=== PATIENT | female | born 1990 | race Caucasian/White ===

== ENCOUNTER 2016-09-17 08:00 | Inpatient (IN) ==
[2016-09-17] MEDS ORDERED: Naloxone 0.4 MG/ML INJ IVP PRN (09:27)
[2016-09-17] MEDS ORDERED: miSOPROStol 25 MCG TABLET VG PRN (09:27)
[2016-09-17] MEDS ORDERED: Ondansetron 4 MG/2 ML VIAL IVP PRN (09:27)
[2016-09-17] MEDS ORDERED: Famotidine 20 MG/2 ML VIAL IVP PRN (09:27)
[2016-09-17] MEDS ORDERED: Ringers Solution, Lactated 1,000 ML IVC SCH (09:30)
[2016-09-17 09:38] LABS: Basophils # 0.1 K/mcL (0.0-0.2); Basophils % 0.4 %; Eosinophils # 0.3 K/mcL (0.0-0.6); Eosinophils % 1.6 %; Hematocrit 35.7 % (35.3-44.9); Hemoglobin 11.7 g/dL (11.5-15.4); Lymphocytes # 3.1 K/mcL (0.6-4.6); Lymphocytes % 19.5 %; Mean Corpuscular HGB Conc 32.8 g/dL (31.6-35.5); Mean Corpuscular Hemoglobin 29.7 pg (28.0-33.3); Mean Corpuscular Volume 90.6 fL (83.0-100.0); Mean Platelet Volume 11.8 fL (9.4-12.4); Monocytes # 1.2 K/mcL (0.0-1.3); Monocytes % 7.5 %; Neutrophils # 11.1 K/mcL (1.6-8.9); Platelet Count 262 K/mcL (140-400); Red Blood Count 3.94 M/mcL (3.82-4.97); Red Cell Distribution Width 12.8 % (11.5-14.5)
--- NOTE | 2016-09-17 10:14 | OB/GYN History & Physical ---
Date of Encounter: 09/17/16 Time of Encounter: 10:11 Assessment and Plan (1) 40 weeks gestation of Current visit: Yes Status: Acute admitted for IOL (2) Elective induction of labor planned Current visit: Yes Status: Acute Dodge catheter placed. Due to contraction pattern will start pitocin if needed. History of Present Illness Chief complaint: Patient here for Scheduled IOL at 40w2d HPI: Ms. Lagunas is a 25 year old female at 40w2d presents for scheduled IOL. Patient reports feeling cramping or possible contractions all morning. Patient denies LOF or VB. Discussed POC with patient. Patient denies any questions or concerns. Blood type: O negative, Rubella: Immune, Hep B: Nonreactive, GBS: Negative. Past Med Surg Social Fam HX - Past Medical History Source: patient Medical history: no medical history Psychiatric history: no psych history - Past Surgical History Surgical History: no surgical history - Social History Smoking Status: Current every day smoker Smokeless Tobacco Status: No Alcohol use: none Current living situation: Home - Independent Activity Level: Independent ambulation Recent Out of Country Travel Within the Last 8 Weeks: No Exposure or Possible Exposure to Illness During Travel: No Obstetrical History - Pregnancies : 2 Para: 1 Term: 1 : 0 Ab's: 0 Livin Medications and Allergies No Known Home Drugs 09/17/16 [History] Allergies No Known Allergies Allergy (Verified 03/14/15 20:32) Review of System OB - Constitutional Constitutional ROS IM: no chills, no fever(s), no headache(s), no night sweats - Cardiovascular Cardiovascular: no chest pain, no edema, no lightheadedness, no palpitations, no syncope - Respiratory Respiratory: no cough, no dyspnea - Gastrointestinal Gastrointestinal: no constipation, no cramping, no diarrhea, no heartburn, no nausea, no vomiting - Genitourinary Genitourinary: no abnormal vaginal bleeding, no dysuria, no flank pain, no urinary frequency, no urinary incontinence, no urinary urgency, no vaginal discharge, no vaginal odor Exam - Constitutional Constitutional: well developed, well nourished, no acute distress, average body habitus - HEENT HEENT: Normocephaly, Mucus Membranes Moist - Neck Neck exam: full ROM, supple - Lungs Respiratory exam: CTAB - Cardiovascular Cardiovascular exam: RRR, +S1, +S2 - Abdomen Abdomen: Present: bowel sounds normal, gravid, non tender - Extremities Extremities exam: full ROM, normal capillary refill, normal inspection Deep Tendon Reflex Grade: 2+ Normal - Cervix Dilation: 2 Effacement: 80 Station: -2 - Uterus Uterus exam: Present: normal size, normal contour - Anus/Rectum Anus/Rectum: Present: normal perianal skin - Comments Comments: FHR 135 bpm moderate variability +15x15 accels no decels noted. contractions every 2-3 minutes. Cat. 1 tracing. Results Result Diagrams: 09/17/16 09:30 Abnormal lab results WBC 15.9 K/mcL (4.3-11.1) H 09/17/16 09:30 Neutrophils # 11.1 K/mcL (1.6-8.9) H 09/17/16 09:30 All other labs normal.
[2016-09-17] MEDS ORDERED: Oxytocin 20 units/ LR 1000 mL 20 UNIT/1,000 ML BAG IVC SCH ×2 (10:15→22:15)
--- NOTE | 2016-09-17 11:39 | Anesthesia Evaluation PreOp ---
Date of Encounter: 09/17/16 Time of Encounter: 11:36 - Past History Planned Operation: vaginal del, , Induction Cardiac History: Denies any Significant Hx Pulmonary History: Denies Any Significant HX SUMMER CLERK History: Denies Any Significant HX Other Medical History: Denies Any Significant HX Anesthesia History: No Prior Anesthetic Complications, Past Anesthesia : Yes Alcohol Use: none Drug use: none Medications and Allergies No Known Home Drugs 09/17/16 [History] Allergies No Known Allergies Allergy (Verified 03/14/15 20:32) Anesthesia Results - Labs 09/17/16 09:30 Anesthesia Exam - HEENT Pupil (Motor): Pupils equal Mallampati: II Teeth: Normal Oral Opening: Greater than 3 - SUMMER CLERK LOC: Oriented SUMMER CLERK Motor: Normal RUE, Normal LUE, Normal RLE, Normal LLE, Normal Face SUMMER CLERK Sensory: Normal: RUE, LUE, RLE, LLE, Face - Cardiac Rhythm: Regular Murmur: None - Pulmonary Breath Sounds: bilateral Clear Respiratory Effort: Symmetrical Anesthesia Assess/Plan ASA Score: 2 Modified Elaina Scale for Level of Consciousness: Cooperative, oriented, and tranquil Anesthetic Plan: General, Regional Monitoring Plan: Standard Monitors Recovery Plan: PACU
[2016-09-17] MEDS ORDERED: Epidural Premix (fent/bupiv) 110 ML EP ONE ×2 (11:46→20:13)
--- NOTE | 2016-09-17 11:50 | OB Labor Progress Note ---
Date of Encounter: 09/17/16 Time of Encounter: 11:48 Labor Progress Note - Subjective Subjective: Patient on birthing ball. Pitocin on 4 milliunits. Discussed POC with patient. Patient denies any questions or concerns. - Cervix Cervix: 5/80/-2 - Heart Tones Heart Tones: 135 bpm moderate variability +15x15 accels no decels noted. - Amaya Amaya: 2-3 min apart - Interventions Interventions: SVE, AROM large amount of clear fluid. IUPC placed without difficulty. Patient tolerated well. - Plan Plan: Continue labor management.
--- NOTE | 2016-09-17 13:09 | OB Labor Progress Note ---
Date of Encounter: 09/17/16 Time of Encounter: 13:05 Labor Progress Note - Subjective Subjective: Patient states contractions getting more uncomfortable but still tolerating them. Still not ready for an epidural - Cervix Cervix: 5/80/-2 posterior - Heart Tones Heart Tones: heart tones 140s reactive - [place]: Contractions every 2 minutes irregular - Plan Plan: Anticipate normal spontaneous vaginal delivery
--- NOTE | 2016-09-17 15:33 | Anesthesia Procedures ---
Date of Encounter: 09/17/16 Time of Encounter: 14:53 Procedures: Anesthesia - Epidural/Spinal Patient ID/Chart reviewed: Yes Patient examined: Yes OB Eval: Gestational age: term OB Eval: : 2 OB Eval: Hx Para: 1 OB Eval: Contractions: Non-stressed pattern Consent Obtained: Yes Supplemental Oxygen: None/Room Air Site Prep: Aseptic Technique, Sterile prep and drape, 0.5% Chlorhexidine/Alcohol Patient position: upright Local Anesthetic: Lidocaine 1% Amount of Local Anesthetic used: 2 Touhy Needle Gauge: 18 Touhy Needle Depth (cm): 6 Catheter Depth at Skin (cm): 10 Test Dose (1.5% Lido + Epi): Volume given (mls): 3 Test Dose Result: Negative Loading Dose: Other: 10ml from solution Loading Dose Administered: Thru Catheter Infusion Med: 0.125% Bupivacaine w/ 2 mcg/ml Fentanyl Infusion Rate (mls/hr): [address]: Tegaderm, Tape Interspace Used: L4-L5 Loss of Resistance (MARIANA): Yes (saline) Blood: No CSF: No Paresthesia: No Procedure: vss though out, FHR stable per RN's
--- NOTE | 2016-09-17 17:09 | OB Labor Progress Note ---
Date of Encounter: 09/17/16 Time of Encounter: 17:00 Labor Progress Note - Subjective Subjective: Patient comfortable after epidural - Cervix Cervix: 5-6/80/-2 - Heart Tones Heart Tones: heart tones 140s reactive - [place]: Contractions every 3-4 minutes irregular chosen at 16 mU/m - Plan Plan: Continued increasing Pitocin plan is anticipated vaginal delivery
[2016-09-17] MEDS ORDERED: ROPIVACAINE HCL/PF 0.5% 30 ML VIAL ONE (20:10)
[2016-09-17] MEDS ORDERED: Lidocaine 1% 20 ML MDV ONE (20:13)
[2016-09-17] MEDS ORDERED: Acetaminophen 325 MG TABLET PO PRN (22:02)
[2016-09-17] MEDS ORDERED: Measles/Mumps/Rubella Vacc 0.5 ML VIAL SQ PRN (22:02)
[2016-09-17] MEDS ORDERED: *HR* HYDROcodone/Acet 5/325 mg TABLET PO PRN (22:02)
[2016-09-17] MEDS ORDERED: Rho Immune Globulin 1,500 UNIT SYRINGE IM PRN (22:02)
--- NOTE | 2016-09-17 22:07 | OB/GYN Procedure Note ---
Delivery - Delivery Date: 09/17/16 Provider: Herrera Francois Intrapartum events: none Delivery induction: oxytocin, figueroa Delivery augmentation: rupture of membranes Delivery monitor: external FHT, external uterine, internal uterine Anesthesia: epidural Estimated Blood Loss: 200 - Infant (s) Infant A Infant Delivery Date: 09/17/16 Infant Delivery Time: 21:42 Presentation: vertex Position: HARVINDER Route of delivery: Gender: Male Viability: Viable Pounds: 8 Ounces: 7 Weight Gram: 3.825 kg at 1 minute: 8 at 5 mins: 9 Shoulder Dystocia: not encountered Specimens collected: cord blood Placenta: spontaneous Cord: 3 umbilical vessels - Repair Episiotomy: none Laceration Description: Periurethral (right), Labial (bilaterally) - Complications Delivery complications: none Delivery comments: Patient is a 25-year-old 2 para 1 at 40-2/7 weeks who is brought in for ductions labor secondary to term . Patient received a only catheter and Pitocin since she was already jason. After Figueroa catheter had come out she was 4-5 cm she was artificially ruptured large amounts of clear fluid. Patient received an epidural when she was partially 5-6 and venous. Patient's Pitocin was increased contractions became irregular we cut the Pitocin and half in and started back up again this seemed to get back into a more regular patent. Patient became complete she pushed for approximately 20 minutes delivering a viable male in right occiput anterior presentation at 2142. There was no nuchal cord, no meconium, was bulb suctioned on the abdomen. Apgars were 8 at 1 minute, 9 at 5 minutes, infant weight was 8 lbs. 7 oz. Placenta was then delivered spontaneously with a three-vessel cord, pipe stem repairer Dr. Francois, anesthesia epidural, estimated blood loss 200 mL. Patient had a right periurethral laceration and bilateral labial lacerations repaired with 4-0 Vicryl in usual fashion. Cervix and vagina was visualized intact. All needles AND sponge counts were correct 3 she did tolerate this delivery. She will be observed 2 hours before being taken floor. - Disposition Mom disposition: stable in LDR disposition: stable in LDR
[2016-09-17] MEDS: Ibuprofen 600 MG TABLET PO PRN (22:59)
[2016-09-18 06:44] LABS: Basophils # 0.1 K/mcL (0.0-0.2); Basophils % 0.2 %; Eosinophils # 0.1 K/mcL (0.0-0.6); Eosinophils % 0.5 %; Hematocrit 33.4 % (35.3-44.9); Hemoglobin 10.9 g/dL (11.5-15.4); Lymphocytes # 2.8 K/mcL (0.6-4.6); Lymphocytes % 11.8 %; Mean Corpuscular HGB Conc 32.6 g/dL (31.6-35.5); Mean Corpuscular Hemoglobin 29.9 pg (28.0-33.3); Mean Corpuscular Volume 91.5 fL (83.0-100.0); Mean Platelet Volume 12.3 fL (9.4-12.4); Monocytes % 7.7 %; Neutrophils # 18.8 K/mcL (1.6-8.9); Platelet Count 256 K/mcL (140-400); Red Blood Count 3.65 M/mcL (3.82-4.97); Red Cell Distribution Width 12.8 % (11.5-14.5); Segmented Neutrophils % 78.8 %
[2016-09-18 06:45] LABS: Monocytes # 1.8 K/mcL (0.0-1.3)
[2016-09-18 08:19] VITALS: BP 107/66
[2016-09-18] MEDS: Ibuprofen 600 MG TABLET PO PRN (08:39)
[2016-09-18] MEDS ORDERED: Lanolin 7 G OINT...G. TP PRN (08:41)
[2016-09-18] MEDS ORDERED: Prenatal Vit/FA 1 EACH TABLET PO SCH (09:00)
--- NOTE | 2016-09-18 09:57 | Discharge Summary ---
Date of Encounter: 09/18/16 Time of Encounter: 09:50 - Discharge Diagnosis (1) Status post vaginal delivery Priority: Primary Status: Acute Comments: Pt is doing well status post vaginal delivery Pt feels comfortable and denies any significant pain. Pt denies any numbness, back pain States lochia light and no clots Dodge removed and pt able to void and pass gas without difficulty Tolerant liquid and advanced to regular diet well May be discharged later tonight following Rhogam eval and administration, 24-48 hours post vaginal delivery if no further complaints, vaginal bleeding or signs of infection Monitor vital signs closely until discharge Counseled pt on signs of infection Educated pt on signs of depression Pt desires to breastfeed (2) Breast feeding status of mother Priority: Secondary Status: Acute Comments: Patient is Difficulty with latch occasionally - Discharge Medications Prescriptions: Ibuprofen [Motrin] 600 mg PO Q6HR PRN #60 tablet PRN Reason: Cramping Breast Pump [BREAST PUMP] 1 each .ROUTE AD #1 each Docusate [Colace] 100 mg PO BID #30 capsule Ferrous Sulfate 325 mg PO DAILY #60 tablet Home Medications: Benzocaine/Menthol [place] [Dermoplast [place]] 1 appl TP QID PRN #0 aerosol [Rx] Breast Pump [BREAST PUMP] 1 each .ROUTE AD #1 each 09/18/16 [Rx] Docusate [Colace] 100 mg PO BID #30 capsule 09/18/16 [Rx] Ferrous Sulfate 325 mg PO DAILY #60 tablet 09/18/16 [Rx] Ibuprofen [Motrin] 600 mg PO Q6HR PRN #60 tablet 09/18/16 [Rx] Lanolin [Lansinoh] 1 appl TP TID PRN #0 oint...g. 09/18/16 [Rx] Allergies/Adverse Reactions: Allergies No Known Allergies Allergy (Verified 03/14/15 20:32) Data Procedures and tests throughout hospitalization: Laboratory Tests 09/17/16 09/18/16 09:30 06:09 WBC 15.9 H 23.9 H D RBC 3.94 3.65 L Hgb 11.7 10.9 L Hct 35.7 33.4 L MCV 90.6 91.5 MCH 29.7 29.9 MCHC 32.8 32.6 RDW 12.8 12.8 Plt Count 262 256 MPV 11.8 12.3 Immature Gran % 1.0 1.0 Seg Neutrophils % 70.0 78.8 Lymphocytes % 19.5 11.8 Monocytes % 7.5 7.7 Eosinophils % 1.6 0.5 Basophils % 0.4 0.2 Neutrophils # 11.1 H 18.8 H Lymphocytes # 3.1 2.8 Monocytes # 1.2 1.8 H Eosinophils # 0.3 0.1 Basophils # 0.1 0.1 Labs on day of discharge: Labs from last 24 hours 09/18/16 06:09 WBC 23.9 H D RBC 3.65 L Hgb 10.9 L Hct 33.4 L MCV 91.5 MCH 29.9 MCHC 32.6 RDW 12.8 Plt Count 256 MPV 12.3 Immature Gran % 1.0 Seg Neutrophils % 78.8 Lymphocytes % 11.8 Monocytes % 7.7 Eosinophils % 0.5 Basophils % 0.2 Neutrophils # 18.8 H Lymphocytes # 2.8 Monocytes # 1.8 H Eosinophils # 0.1 Basophils # 0.1 Date of admission: 09/17/16 09:15 Primary care physician: Antonia Jhaveri Consults: 09/17/16 22:02 Consult to Supervisor Telephone Information [CONS] Routine Comment: Vaginal delivery, consult needed Discharging clinician: Jess Guzmán Anticipated date of discharge: 09/18/16 - Patient Status Disposition: Transfer Inpatient Rehab Fac Condition: Good - Discharge Instructions Follow Up With: Antonia Jhaveri MD [Primary Care Provider] - Additional Instructions: -May use lanonlin PRN while - Diet and Activity Activity: increase activity as tolerated Diet: advance to your usual diet (Maintain high intake of fruits and vegetables , w) Hospital Course Reason for admission: induction of labor Delivery: Episiotomy: none Laceration: other (Right periurethral, bilateral labial) Other procedures: none Discharge diagnosis: IUP at term delivered baby: male Time Attestation: Total time spent providing and/or coordinating discharge services: with Henna Hull Time Spent: Greater than 30 minutes Exam - Constitutional Vitals: Temp Pulse Resp BP Pulse Ox 98.3 F 65 12 107/66 97 09/18/16 08:18 09/18/16 08:18 09/18/16 08:18 09/18/16 08:18 09/18/16 08:18 General appearance IM: cooperative, A&O X 3, pleasant, no acute distress - Respiratory Respiratory exam: Present: CTAB. Absent: accessory muscle use, chest wall tenderness, decreased breath sounds, wheezes - Cardiovascular Cardiovascular exam IM: Present: RRR. Absent: tachycardia - GI/Abdominal GI/Abdominal exam IM: normal bowel sounds, soft - Rectal Rectal exam: deferred - Uterine Tone: Firm Uterus Position: 1 Finger Above Umbilicus (pt needs to void shortly) Additional comments: Denies pain, endorses some numbness. Declined vaginal examination at this time. - Extremities Exam Extremities exam IM: Absent: calf tenderness, joint swelling - Neurological Exam Neurological exam: alert, reflexes normal (patellar, biceps) - Attending Attestation I agree with above documentation and have personally seen the patient. Yanely Aguillon CNM
[2016-09-18] MEDS ORDERED: Benzocaine/Menthol 56 GM AEROSOL SPRAY TP PRN (10:12)
== END 2016-09-18 17:00 | DRG 560 ==
LOC: 1NENULAB 09:15 → 1NENUOBS 09-18 00:41
PROVIDERS: ADMIT Obstetrics & Gynecology; ATTEND Obstetrics & Gynecology